=== PATIENT | male | born 2000 | race Caucasian/White ===

== ENCOUNTER 2023-04-25 17:31 | Emergency (ER) | payer SELFPAY ==
[2023-04-25] MEDS: Sodium Chloride 0.9% 10 ML Syringe FLUSH PRN (17:57)
[2023-04-25] MEDS: Hydrocortisone Sodium Succinate 100 MG/2 ML SDV IVPUSH ONE (17:57)
[2023-04-25 18:09] LABS: BASOPHILS PERCENT AUTO 0.8 % (0.0-1.0); EOSINOPHILS ABSOLUTE AUTO 0.1 K/mm3 (0.0-0.4); EOSINOPHILS PERCENT AUTO 3.9 % (0.0-6.0); HEMOGLOBIN 10.1 gm/dl (14.0-18.0); LYMPHOCYTES ABSOLUTE AUTO 1.3 K/mm3 (1.0-4.8); LYMPHOCYTES PERCENT AUTO 50.4 % (24.0-44.0); MEAN CORPUSCULAR HEMOGLOBIN 23.6 pg (28.0-32.0); MEAN CORPUSCULAR HGB CONC 28.9 g/dl (32.0-36.0); MEAN CORPUSCULAR VOLUME 81.8 fl (83.0-99.0); MEAN PLATELET VOLUME 9.6 fl (9.4-12.4); MONOCYTES ABSOLUTE AUTO 0.2 K/mm3 (0.0-0.8); MONOCYTES PERCENT AUTO 9.4 % (0.0-8.0); NEUTROPHILS ABSOLUTE AUTO 0.9 K/mm3 (1.8-7.7); NEUTROPHILS PERCENT AUTO 35.5 % (41.0-71.0); PLATELET COUNT,PLT 259 K/mm3 (150-400); RED BLOOD CELL COUNT 4.28 M/mm3 (4.52-5.90); WHITE BLOOD CELL COUNT,WBC 2.56 K/mm3 (3.9-11.3)
[2023-04-25 18:40] LABS: A/G RATIO 0.8 (1-2); ALANINE AMINOTRANSFERASE,ALT 36 U/L (16-63); ALBUMIN 3.3 g/dl (3.4-5.0); ALKALINE PHOSPHATASE 89 U/L (46-116); ANION GAP 11.3 (5-15); ASPARTATE AMNIOTRANSFERASE,AST 40 U/L (15-37); BILIRUBIN TOTAL 0.2 mg/dL (0.2-1.0); BLOOD UREA NITROGEN,BUN 22 mg/dL (7-18); BUN/CREATININE RATIO 15.7 (14-18); CALCIUM 9.4 mg/dL (8.5-10.1); CARBON DIOXIDE,CO2 32 mEq/L (21-32); CHLORIDE,CL 122 mEq/L (98-107); CREATININE 1.4 mg/dL (0.7-1.3); EST CRCL DRUG DOSING (CG) 84.01 mL/min; ESTIMATED GFR 72 mL/min (>60); MAGNESIUM 2.3 mg/dL (1.8-2.4); PROTEIN TOTAL,TP 7.6 g/dl (6.4-8.2)
[2023-04-25 18:46] LABS: SODIUM,NA 161 mEq/L (136-145); TSH < 0.007 uIU/mL (0.358-3.74)
[2023-04-25 18:47] LABS: GLUCOSE RANDOM 94 mg/dL (70-99); POTASSIUM,K 4.3 mEq/L (3.5-5.1); SLIDE REVIEW ABNORMAL SMEAR
[2023-04-25 19:44] LABS: ANION GAP 13.7 (5-15); BUN/CREATININE RATIO 15.7 (14-18); CALCIUM 9.5 mg/dL (8.5-10.1); CREATININE 1.4 mg/dL (0.7-1.3); EST CRCL DRUG DOSING (CG) 84.01 mL/min; POTASSIUM,K 4.7 mEq/L (3.5-5.1)
[2023-04-25] MEDS: Dextrose 5% in Water 1,000 ML IV SCH (19:54)
[2023-04-25 20:36] LABS: ANION GAP 11.6 (5-15); BUN/CREATININE RATIO 17.7 (14-18); CALCIUM 9.7 mg/dL (8.5-10.1); CREATININE 1.3 mg/dL (0.7-1.3); EST CRCL DRUG DOSING (CG) 90.47 mL/min; POTASSIUM,K 4.6 mEq/L (3.5-5.1)
[2023-04-25 21:08] LABS: APPEARANCE,URINE CLEAR (Clear); BILIRUBIN,URINE NEGATIVE (Negative); COLOR,URINE LIGHT YELLOW (Yellow); GLUCOSE,URINE NEGATIVE (Negative); KETONES,URINE NEGATIVE (Negative); LEUKOCYTE ESTERASE,URINE NEGATIVE (Negative); NITRITE,URINE NEGATIVE (Negative); OCCULT BLOOD,URINE NEGATIVE (Negative); PH,URINE 7.5 (5.0-8.0); PROTEIN,URINE NEGATIVE (Negative); UROBILINOGEN,URINE 0.2 (0.2-1.0)
[2023-04-25 21:41] LABS: RBC,URINE 0-5 /hpf (0-5); WBC,URINE NOT SEEN /hpf (0-5)
[2023-04-25 21:42] LABS: BACTERIA,URINE RARE /hpf (FEW); EPITHELIAL CELLS,URINE NOT SEEN /hpf (0-5); MUCUS,URINE NOT SEEN /hpf (FEW)
== END 2023-04-25 20:50 ==
LOC: JD.ED 17:31
DX: E87.1 Hypo-osmolality and hyponatremia (principal); Z91.018 Allergy to other foods; Z79.899 Other long term (current) drug therapy
CPT/HCPCS: 36415; 80048; 80053; 81001; 83605; 83735; 84443; 85025; 96361; 96374; 99285; J1720; J3490; J7060